=== PATIENT | female | born 1935 | race Caucasian/White ===

== ENCOUNTER 2018-05-07 09:02 | Emergency (ER) | payer MEDICARE ==
[2018-05-07 09:38] LABS: #Eosinphils 0.1 thou/uL (0.0-0.7); #Lymphocytes 1.9 thou/uL (1.20-3.40); #Monocytes 0.7 thou/uL (0.11-0.59); #Neutrophils 4.6 thou/uL (1.40-6.50); %Basophils 0.6 % (0.0-1.0); %Eosinophils 1.9 % (0.0-10.0); %Lymphocytes 25.8 % (21.0-51.0); %Monocytes 9.3 % (0.0-10.0); %Neutrophils 62.5 % (42.0-75.0); Hemoglobin 15.3 g/dL (12.0-16.0); Mean Corpuscular HGB CONC 32.9 g/dL (32.0-36.0); Mean Corpuscular Hemoglobin 33.4 pg (27.0-31.0); Mean Platelet Volume 9.5 fL (7.4-10.4); Platelet Count 157 thou/uL (130-400); RBC Distribution Width 11.3 % (11.5-14.5); Red Blood Cell (RBC) Count 4.57 mill/uL (4.20-5.40); White Blood Cell (WBC) Count 7.4 thou/uL (4.8-10.8)
[2018-05-07 10:01] LABS: ALT (SGPT) 14 U/L (8-55); AST (SGOT) 18 U/L (5-34); Albumin 4.1 g/dL (3.4-4.8); Alkaline Phosphatase 84 U/L (40-150); Anion Gap 11 mmol/L (10-20); BUN (Urea Nitrogen) 10 mg/dL (9.8-20.1); Bilirubin, Total 0.9 mg/dL (0.2-1.2); Calc. Creatinine Clearance 0 mL/min (70-130); Calcium 9.5 mg/dL (7.8-10.44); Carbon Dioxide 25 mmol/L (23-31); Chloride 103 mmol/L (98-107); Estimated GFR-MDRD 67; Globulin 2.8 g/dL (2.4-3.5); Glucose 140 mg/dL (83-110); Potassium 4.2 mmol/L (3.5-5.1); Protein, Total 6.9 g/dL (6.0-8.3); Sodium 135 mmol/L (136-145)
[2018-05-07 10:06] LABS: CKMB 1.9 ng/mL (0-6.6); Troponin I Less than 0.010 ng/mL (< 0.028)
[2018-05-07] MEDS ORDERED: Diazepam 5 MG TAB ONE (10:20)
--- NOTE | 2018-05-07 11:41 | RAD ---
TWO VIEW CHEST SERIES: INDICATIONS: Pain. FINDINGS: The lungs are hyperinflated. There is pleural-based density bilaterally, at the inferior chest, with linear densities of the lower lung zones. The cardiac silhouette and pulmonary vasculature are prom inent. No pneumothorax. IMPRESSION: 1. Chronic obstructive pulmonary disease. 2. Bibasilar densities, indicating atelectasis or scar. 3. Prominent cardiac silhouette and pulmonary vasculature. Correlate for evidence of congestive hea rt failure. POS: [facility]
--- NOTE | 2018-05-07 11:51 | CT ---
CT HEAD NONCONTRAST: INDICATIONS: Bending injury with left arm weakness. FINDINGS: There is no evidence of intracranial hemorrhage, mass effect, midline shift, or ventriculomegaly. Mi ld chronic ischemic disease is present. There is mild mucosal thickening of the paranasal sinuses. IMPRESSION: 1. No acute intracranial hemorrhage or mass effect. 2. Mild chronic microvascular ischemic disease. POS: [facility]
== END 2018-05-07 10:30 | disposition home or self-care (01) ==
LOC: ERS 09:02
DX: R07.81 Pleurodynia (principal); I10 Essential (primary) hypertension; Z79.899 Other long term (current) drug therapy
CPT/HCPCS: 70450; 71046; 80053; 82553; 84484; 85025; 93005